=== PATIENT | male | born 1985 | race Caucasian/White ===

== ENCOUNTER 2019-05-05 22:10 | Emergency (ER) | payer BC, MEDICAID ==
[~2019-05-05] VITALS: Ht 173 cm; Wt 107.0 kg
[~2019-05-05 22:10] MED LIST: HYDR1TAB PO; SULF1TAB38 PO
[2019-05-05 23:28] LABS: BILIRUBIN,URINE NEGATIVE (NEGATIVE); CLARITY,URINE CLEAR; COLOR,URINE YELLOW; GLUCOSE, URINE (UA) NEGATIVE (NEGATIVE); KETONES,URINE NEGATIVE (NEGATIVE); LEUKOCYTE ESTERASE ,URINE NEGATIVE (NEGATIVE); NITRITE,URINE NEGATIVE (NEGATIVE); PROTEIN,URINE NEGATIVE (NEGATIVE)
[2019-05-05 23:37] LABS: BASOPHILS # (AUTO) 0.1 10^3/uL (0.0-0.1); BASOPHILS % (AUTO) 1 % (0-10); EOSINOPHILS # (AUTO) 0.6 10^3/uL (0.0-0.3); EOSINOPHILS % (AUTO) 5 % (0-10); HEMATOCRIT 47 % (40-54); HEMOGLOBIN 15.4 G/DL (13.3-17.7); LYMPHOCYTES # (AUTO) 3.1 X 10^3 (1.0-4.0); LYMPHOCYTES % (AUTO) 26 % (12-44); MEAN CORPUSCULAR HEMOGLOBIN 30 PG (25-34); MEAN CORPUSCULAR HGB CONC 33 G/DL (32-36); MEAN CORPUSCULAR VOLUME 91 FL (80-99); MEAN PLATELET VOLUME 9.8 FL (7.4-10.4); MONOCYTES # (AUTO) 0.9 X 10^3 (0.0-1.0); MONOCYTES % (AUTO) 8 % (0-12); NEUTROPHILS # (AUTO) 7.4 X 10^3 (1.8-7.8); NEUTROPHILS % (AUTO) 61 % (42-75); PLATELET COUNT 438 10^3/uL (130-400); RED CELL DISTRIBUTION WIDTH 14.7 % (10.0-14.5); WHITE BLOOD COUNT 12.2 10^3/uL (4.3-11.0)
[2019-05-05 23:44] LABS: AMPHETAMINE SCREEN, URINE NEGATIVE (NEGATIVE); BARBITURATE SCREEN URINE NEGATIVE (NEGATIVE); BENZODIAZEPINES SCREEN URINE NEGATIVE (NEGATIVE); CANNABINOID SCREEN, URINE NEGATIVE (NEGATIVE); COCAINE SCREEN URINE NEGATIVE (NEGATIVE); METHADONE STAT NEGATIVE (NEGATIVE); METHAMPHETAMINE SCREEN URINE S NEGATIVE (NEGATIVE); OPIATE SCREEN URINE NEGATIVE (NEGATIVE); OXYCODONE STAT NEGATIVE (NEGATIVE); PROPOXYPHENE STAT NEGATIVE (NEGATIVE); TRICYCLIC ANTIDEPRESSANTS SCRE NEGATIVE (NEGATIVE)
[2019-05-05 23:45] LABS: BACTERIA,URINE NEGATIVE /HPF; RBC,URINE 0-2 /HPF; WBC,URINE 0-2 /HPF
[2019-05-05] MEDS ORDERED: PANTOPRAZOLE 40 MG (PROTONIX) VIAL IV ONE (23:45)
[2019-05-05] MEDS ORDERED: HYOSCYAMINE 0.125 MG (LEVSIN) TAB PO ONE (23:45)
[2019-05-05 23:53] LABS: ALANINE AMINOTRANSFERASE 42 U/L (0-55); ALBUMIN 4.5 GM/DL (3.2-4.5); ALKALINE PHOSPHATASE 72 U/L (40-136); AMYLASE 57 U/L (25-125); BILIRUBIN,TOTAL 0.3 MG/DL (0.1-1.0); BUN/CREATININE RATIO 14; CALCIUM 9.8 MG/DL (8.5-10.1); CARBON DIOXIDE 24 MMOL/L (21-32); CHLORIDE 103 MMOL/L (98-107); CREATININE SERUM 0.84 MG/DL (0.60-1.30); GFR ESTIMATED > 60; GLUCOSE 104 MG/DL (70-105); LIPASE 31 U/L (8-78); SODIUM 141 MMOL/L (135-145); TOTAL PROTEIN 7.7 GM/DL (6.4-8.2)
[2019-05-06] MEDS ORDERED: HOLD METFORMIN - RECEIVED CONTRAST 20 ML VIAL IV SCH
[2019-05-06] MEDS ORDERED: NS 100 ML (IVPB) BAG IV ONE
[2019-05-06] MEDS ORDERED: IOHEXOL 350 MG/ML 100 ML (OMNIPAQUE 350) VIAL IV ONE
--- NOTE | 2019-05-06 00:45 | NUR ---
pt reports pain improved. denies needs at this time. informed of anticipated wait time for ct results.
[2019-05-06] MEDS ORDERED: HYOS0.1283 SL (01:37)
[2019-05-06] MEDS ORDERED: SUCR1TAB36 PO (01:37)
[2019-05-06] MEDS ORDERED: PANT40TA2 PO (01:37)
--- NOTE | 2019-05-06 01:37 | ED Abdominal Pain ---
General Chief Complaint: Abdominal/GI Problems Stated Complaint: ABD PAIN, Nursing Triage Note: INTERMITTANT EPIGASTRIC PAIN X2 WEEKS Sepsis Screen: No Definite Risk Source of Information: Patient History of Present Illness Date Seen by Provider: May 05, 2019 Time Seen by Provider: 23:00 Initial Comments PT ARRIVES VIA POV FROM HOME C/O EPIGASTRIC PAIN OFF AND ON FOR THE LAST 2 WEEKS STATES IT FEELS LIKE CRAMPING STATES PAIN USUALLY LASTS A COUPLE OF HOURS, TODAY IT HAS BEEN CONSTANT SINCE 1400 TODAY PAIN IS IMPROVED WITH BENDING OVER, NOTHING WORSENS PAIN NO NAUSEA/VOMITING/DIARRHEA. HAD A NORMAL BM THIS AM NO URINARY SYMPTOMS NO FEVER HAS NOT SOUGHT CARE UNTIL TODAY HAS NOT TAKEN ANYTHING FOR SYMPTOMS PT STATES HE TAKES AT LEAST 7 IBUPROFEN PM EVERY DAY--ALL AT THE SAME TIME, FOR SLEEP. Allergies and Home Medications Allergies Coded Allergies: No Known Drug Allergies (Unverified , 05/21/12) Home Medications Hyoscyamine Sulfate 0.125 Mg Tab.subl, 1-2 TAB SL Q4H Prescribed by: AISHA DUMONT on 05/06/19136 Pantoprazole Sodium 40 Mg Tablet.dr, 40 MG PO DAILY Prescribed by: AISHA DUMONT on 05/06/19136 Sucralfate 1 Gm Tablet, 1 GM PO QIDACHS Prescribed by: AISHA DUMONT on 05/06/19136 Patient Home Medication List Home Medication List Reviewed: Yes Review of Systems Review of Systems Constitutional: no symptoms reported; No chills, No diaphoresis, No dizziness, No fever Respiratory: No Symptoms Reported Cardiovascular: No Symptoms Reported Gastrointestinal: See HPI, Abdominal Pain; Denies Constipated, Denies Diarrhea, Denies Nausea, Denies Vomiting Genitourinary: No Symptoms Reported Musculoskeletal: no symptoms reported Skin: no symptoms reported Psychiatric/Neurological: No Symptoms Reported Endocrine: No Symptoms Reported Hematologic/Lymphatic: No Symptoms Reported Past Mfzadga-Nphyjn-Zvtvdo Hx Patient Social History Alcohol Use: Rarely Uses Recreational Drug Use: No Type Used: Smokeless Tobacco 2nd Hand Smoke Exposure: No Recent Foreign Travel: No Contact w/Someone Who Travel: No Recent Infectious Disease Expo: No Recent Hopitalizations: No Physical Abuse: No Sexual Abuse: No Mistreated: No Fear: No Immunizations Up To Date Tetanus Booster (TDap): Unknown Seasonal Allergies Seasonal Allergies: No Past Medical History Surgeries: No Respiratory: No Cardiac: No Neurological: No Genitourinary: No Gastrointestinal: No Musculoskeletal: No Endocrine: No HEENT: No Cancer: No Psychosocial: No Integumentary: No Blood Disorders: No Physical Exam Vital Signs Vital Signs - First Documented 05/05/19 23:06 Temp 37.1 Pulse 110 Resp 18 B/P (MAP) 136/100 (112) Pulse Ox 97 O2 Delivery Room Air Capillary Refill : Less Than 3 Seconds Height/Weight/BMI Height: '" Weight: lbs. oz. kg; 35.00 BMI Method:Stated General Appearance: WD/WN, no apparent distress, other (ANXIOUS) HEENT: PERRL/EOMI; No scleral icterus (R), No scleral icterus (L) Neck: normal inspection Respiratory: normal breath sounds, no respiratory distress, no accessory muscle use Cardiovascular: no murmur, tachycardia (MILD ) Gastrointestinal: normal bowel sounds, soft, no organomegaly, no pulsatile mass; No distended, No guarding, No rebound; tenderness (MILD EPIGASTRIC TENDERNESS); No hernia, No mass Extremities: normal inspection, no pedal edema, normal capillary refill Neurologic/Psychiatric: behavioral health professional II-XII nml as tested, no motor/sensory deficits, alert, normal mood/affect, oriented x 3 Skin: normal color, warm/dry Progress/Results/Core Measures Results/Orders Lab Results Laboratory Tests Test 05/05/19 23:20 05/05/19 23:25 Range/Units Urine Color YELLOW Urine Clarity CLEAR Urine pH 6.0 5-9 Urine Specific Riley >=1.030 1.016-1.022 Urine Protein NEGATIVE NEGATIVE Urine Glucose (UA) NEGATIVE NEGATIVE Urine Ketones NEGATIVE NEGATIVE Urine Nitrite NEGATIVE NEGATIVE Urine Bilirubin NEGATIVE NEGATIVE Urine Urobilinogen 0.2 < = 1.0 MG/DL Urine Leukocyte Esterase NEGATIVE NEGATIVE Urine RBC (Auto) TRACE-I NEGATIVE Urine RBC 0-2 /HPF Urine WBC 0-2 /HPF Urine Crystals NONE /LPF Urine Bacteria NEGATIVE /HPF Urine Casts NONE /LPF Urine Mucus NEGATIVE /LPF Urine Culture Indicated NO Urine Opiates Screen NEGATIVE NEGATIVE Urine Oxycodone Screen NEGATIVE NEGATIVE Urine Methadone Screen NEGATIVE NEGATIVE Urine Propoxyphene Screen NEGATIVE NEGATIVE Urine Barbiturates Screen NEGATIVE NEGATIVE Ur Tricyclic Antidepressants Screen NEGATIVE NEGATIVE Urine Phencyclidine Screen NEGATIVE NEGATIVE Urine Amphetamines Screen NEGATIVE NEGATIVE Urine Methamphetamines Screen NEGATIVE NEGATIVE Urine Benzodiazepines Screen NEGATIVE NEGATIVE Urine Cocaine Screen NEGATIVE NEGATIVE Urine Cannabinoids Screen NEGATIVE NEGATIVE White Blood Count 12.2 H 4.3-11.0 10^3/uL Red Blood Count 5.16 4.35-5.85 10^6/uL Hemoglobin 15.4 13.3-17.7 G/DL Hematocrit 47 40-54 % Mean Corpuscular Volume 91 80-99 FL Mean Corpuscular Hemoglobin 30 25-34 PG Mean Corpuscular Hemoglobin Concent 33 32-36 G/DL Red Cell Distribution Width 14.7 H 10.0-14.5 % Platelet Count 438 H 130-400 10^3/uL Mean Platelet Volume 9.8 7.4-10.4 FL Neutrophils (%) (Auto) 61 42-75 % Lymphocytes (%) (Auto) 26 12-44 % Monocytes (%) (Auto) 8 0-12 % Eosinophils (%) (Auto) 5 0-10 % Basophils (%) (Auto) 1 0-10 % Neutrophils # (Auto) 7.4 1.8-7.8 X 10^3 Lymphocytes # (Auto) 3.1 1.0-4.0 X 10^3 Monocytes # (Auto) 0.9 0.0-1.0 X 10^3 Eosinophils # (Auto) 0.6 H 0.0-0.3 10^3/uL Basophils # (Auto) 0.1 0.0-0.1 10^3/uL Sodium Level 141 135-145 MMOL/L Potassium Level 4.0 3.6-5.0 MMOL/L Chloride Level 103 98-107 MMOL/L Carbon Dioxide Level 24 21-32 MMOL/L Anion Gap 14 5-14 MMOL/L Blood Urea Nitrogen 12 7-18 MG/DL Creatinine 0.84 0.60-1.30 MG/DL Estimat Glomerular Filtration Rate > 60 BUN/Creatinine Ratio 14 Glucose Level 104 70-105 MG/DL Calcium Level 9.8 8.5-10.1 MG/DL Corrected Calcium 9.4 8.5-10.1 MG/DL Total Bilirubin 0.3 0.1-1.0 MG/DL Aspartate Amino Transf (AST/SGOT) 29 5-34 U/L Alanine Aminotransferase (ALT/SGPT) 42 0-55 U/L Alkaline Phosphatase 72 40-136 U/L Total Protein 7.7 6.4-8.2 GM/DL Albumin 4.5 3.2-4.5 GM/DL Amylase Level 57 25-125 U/L Lipase 31 8-78 U/L Serum Alcohol < 10 <10 MG/DL My Orders Orders - AISHA DUMONT DO Ua Culture If Indicated (05/05/19 23:10) Ed Iv/Invasive Line Start (05/05/19 23:17) Alcohol (05/05/19 23:17) Amylase (05/05/19 23:17) Cbc With Automated Diff (05/05/19 23:17) Comprehensive Metabolic Panel (05/05/19 23:17) Drug Screen Stat (Urine) (05/05/19 23:17) Lipase (05/05/19 23:17) Pantoprazole Injection (Protonix Injecti (05/05/19 23:45) Hyoscyamine Sl Tablet (Levsin Sl Tablet) (05/05/19 23:45) Iohexol Injection (Omnipaque 350 Mg/Ml 1 (05/06/19 00:00) Received Contrast (Hold Metformin- Contr (05/06/19 00:00) Ns (Ivpb) (Sodium Chloride 0.9% Ivpb Bag (05/06/19 00:00) Ct Abdomen/Pelvis W (05/06/19 23:39) Acute Abd Series (05/06/19 23:39) Medications Given in ED Vital Signs/I&O 05/05/19 05/06/19 23:06 01:43 Temp 37.1 37.0 Pulse 110 95 Resp 18 18 B/P (MAP) 136/100 (112) 129/100 (112) Pulse Ox 97 100 O2 Delivery Room Air Room Air Blood Pressure Mean: 112 Progress Progress Note : Progress Note SYMPTOMS IMPROVED AT DISMISSAL Diagnostic Imaging Comments ABDOMEN XRAYS--NO ACUTE PROCESS, PENDING RADIOLOGIST REVIEW CT ABDOMEN/ PELVIS--MILD STRANDING NEAR GE JUNCTION AND PANCREATIC HEAD, MAY BE PUD/GASTRITIS/DUODENITIS, --PER [facility] VIA FAX AT [id number] Reviewed: Reviewed by Me Departure Impression Primary Impression: Epigastric abdominal pain Additional Impression: POSSIBLE GASTRITIS Disposition: HOME, SELF-CARE Condition: Improved Departure-Patient Inst. Referrals: CATRINA BERGER MD NO,LOCAL PHYSICIAN (PCP) Primary Care Physician Patient Instructions: Acute Abdomen (Belly Pain), Adult (DC), Gastritis (DC) Add. Discharge Instructions: NO IBUPROFEN, ASPIRIN OR ALEVE YOU MAY TAKE TYLENOL NEEDED FOR PAIN FOLLOW UP WITH DR. BERGER IN THE NEXT WEEK. CALL IN AM FOR APPOINTMENT All discharge instructions reviewed with patient and/or family. Voiced understanding. Scripts Hyoscyamine Sulfate (Levsin-Sl) 0.125 Mg Tab.subl 1-2 TAB SL Q4H for Abdominal Pain, #15 TAB Prov: AISHA DUMONT DO 05/06/19 Sucralfate (Carafate) 1 Gm Tablet 1 GM PO QIDACHS, #60 TAB Prov: AISHA DUMONT DO 05/06/19 Pantoprazole Sodium (Protonix) 40 Mg Tablet.dr 40 MG PO DAILY, #15 TAB Prov: AISHA DUMONT DO 05/06/19 AISHA DUMONT DO May 06, 2019 01:37
[2019-05-06 01:43] VITALS: BP 129/100
--- NOTE | 2019-05-06 05:58 | Diagnostic Imaging Report ---
INDICATION: Epigastric pain COMPARISON: Abdominal CT from earlier same day FINDINGS: Supine and upright views of the abdomen show a nondistended bowel gas pattern. Moderate air and stool is noted scattered throughout the colon. There is residual contrast within the renal collecting systems. No abnormal air fluid levels or free intraperitoneal air is seen. No abnormal extraosseous calcifications are seen. Bony and soft tissue structures are within normal limits. No organomegaly is identified. Accompanying upright chest shows normal heart size and pulmonary vascularity. The lungs are well aerated and clear. The mediastinum is normal in appearance. IMPRESSION: 1. No bowel obstruction or free air. 2. Normal chest. No pneumonia or pulmonary edema. 3. Moderate colonic air and stool. Please correlate for constipation. Dictated by: Dictated on workstation # [id number]
--- NOTE | 2019-05-06 06:48 | Diagnostic Imaging Report ---
PROCEDURE: CT abdomen and pelvis with contrast. TECHNIQUE: Multiple contiguous axial images were obtained through the abdomen and pelvis after administration of intravenous contrast. Auto Exposure Controls were utilized during the CT exam to meet ALARA standards for radiation dose reduction. INDICATION: Epigastric pain. COMPARISON: None. FINDINGS: Included portions of the lung bases are clear. CT ABDOMEN: Normal appendix is identified. Moderate amount of air and stool is noted within colon. Small bowel loops are nondistended. Note is made of somewhat thickened appearance to the region of the pylorus and duodenal bulb (image 26, series 2). There is slight stranding of the surrounding fat. Nonobstructive left renal calculus is noted. No renal calculi are seen on the right. No ureteral calculi are identified on either side. Additionally, there is no hydroureteronephrosis or other evidence of obstruction. No focal renal masses are seen. Evaluation of liver demonstrates area of nodular subcapsular enhancement involving the posterior margins of segment 6 of the liver. Area in question measures 2 cm in diameter (image 29, series 2). No other focal hepatic masses are seen. The adrenal glands, spleen, and pancreas have a normal CT appearance. There is no loculated fluid collection, free fluid, nor free air within the abdomen. No abnormal mesenteric or retroperitoneal adenopathy is seen. Osseous structures show no acute abnormalities. CT PELVIS: Urinary bladder is unopacified. No calculi are seen within urinary bladder. There is no loculated fluid collection, free fluid, nor free air within the pelvis. No abnormal lymph nodes are identified. Osseous structures show no acute abnormalities. IMPRESSION: 1. Subtle thickened appearance to the region of the pylorus and duodenal bulb with slight stranding of the surrounding fat. Findings are suspicious for potential duodenitis/peptic ulcer disease/gastritis. This appears to spare the pancreas, but correlation for underlying acute pancreatitis is advised. 2. No pneumatosis, pneumoperitoneum, nor portal venous gas. 3. Moderate colonic air and stool. Please correlate for constipation. 4. Nonobstructive left renal calculus. 5. Area of subcapsular nodular enhancement involving segment 6 of the liver. Findings are nonspecific, but could be on the basis of transient hepatic attenuation defect. Dictated by: Dictated on workstation # [id number]
== END 2019-05-06 01:46 | disposition home or self-care (01) ==
LOC: EDUNIT# 22:10 → ER 22:12
DX: R10.13 Epigastric pain (principal)
CPT/HCPCS: 36415; 74022; 74177; 80053; 80306; 80320; 81000; 82150; 83690; 85025; 96374